=== PATIENT | male | born 1945 | race Caucasian/White ===

== ENCOUNTER 2017-07-15 05:41 | Inpatient (IN) | payer MEDICARE, BC ==
[2017-07-15] MEDS ORDERED: Heparin 10,000 UNITS/1 ML VIAL ONE (06:29)
[2017-07-15] MEDS ORDERED: Protamine Sulfate 50 MG/5 ML VIAL ONE (06:29)
[2017-07-15 06:49] LABS: #Basophils 0.1 thou/uL (0.0-0.2); #Eosinphils 0.4 thou/uL (0.0-0.7); #Lymphocytes 3.6 thou/uL (1.20-3.40); #Monocytes 0.8 thou/uL (0.11-0.59); #Neutrophils 4.4 thou/uL (1.40-6.50); %Basophils 1.1 % (0.0-1.0); %Lymphocytes 38.8 % (21.0-51.0); %Monocytes 8.9 % (0.0-10.0); Hematocrit 48.4 % (42.0-52.0); Mean Platelet Volume 6.8 fL (7.4-10.4); White Blood Cell (WBC) Count 9.3 thou/uL (4.8-10.8)
[2017-07-15 07:10] LABS: Anion Gap 13 mmol/L (10-20); BUN (Urea Nitrogen) 27 mg/dL (8.4-25.7); Calc. Creatinine Clearance 68 mL/min (70-130); Calcium 9.3 mg/dL (7.8-10.44); Carbon Dioxide 21 mmol/L (23-31); Chloride 110 mmol/L (98-107); Estimated GFR-MDRD 61
[2017-07-15] MEDS ORDERED: Fentanyl 100 MCG/2 ML VIAL ONE ×3 (07:21→11:33)
[2017-07-15] MEDS ORDERED: Lidocaine 2% PF 10 ML AMP (For Epidural Use) ONE (07:35)
[2017-07-15] MEDS ORDERED: Labetalol HCl 100 MG/20 ML SYR ONE (07:35)
[2017-07-15] MEDS ORDERED: Glycopyrrolate 0.2 MG/ML 5 ML SYRINGE ONE (07:35)
[2017-07-15] MEDS ORDERED: PHENYLEPHRINE-NS 100 MCG/ML 10 ML SYRINGE ONE (07:35)
[2017-07-15] MEDS ORDERED: Ondansetron HCl/PF 4 MG/2 ML Vial ONE (07:35)
[2017-07-15] MEDS ORDERED: Propofol 200 MG/20 ML VIAL ONE (07:35)
[2017-07-15] MEDS ORDERED: Phenylephrine 10 MG/NS 250 ML 250 ML ONE (08:29)
[2017-07-15] MEDS ORDERED: Promethazine HCl 25 MG/ML VIAL SLOW IVP PRN (09:56)
[2017-07-15] MEDS ORDERED: Ondansetron HCl/PF 4 MG/2 ML Vial IVP PRN ×2 (09:56→12:25)
[2017-07-15] MEDS ORDERED: Promethazine HCl 25 MG/ML VIAL IM PRN ×2 (09:56→12:25)
[2017-07-15] MEDS: Sodium Chloride 0.9% 1,000 ML IV SCH (12:10)
[2017-07-15] MEDS ORDERED: Fentanyl 100 MCG/2 ML VIAL SLOW IVP PRN ×2 (12:25)
[2017-07-15] MEDS ORDERED: DOPamine 400 MG/D5W 250 ML 250 ML IVPB PRN (12:25)
[2017-07-15] MEDS ORDERED: Phenylephrine 10 MG/NS 250 ML 250 ML IVPB PRN (12:25)
[2017-07-15] MEDS ORDERED: Nitroglycerin 50 MG/250 ML BOT 250 ML IVPB PRN (12:25)
[2017-07-15] MEDS ORDERED: HYDROcodone/Acetaminophen 5/325 mg Tablet PO PRN (12:25)
[2017-07-15] MEDS ORDERED: Acetaminophen 325 MG TAB PO PRN (12:25)
[2017-07-15 13:00] VITALS: BMI 29.4
--- NOTE | 2017-07-15 14:18 | OP ---
DATE OF PROCEDURE: 07/15/2017 PREOPERATIVE DIAGNOSIS: Abdominal aortic aneurysm. POSTOPERATIVE DIAGNOSIS: Abdominal aortic aneurysm. PROCEDURE PERFORMED: EVAR using Endurant IIs graft system with main body 32 x 14 x 103 inserted up the right side, then left limb 16 x 10 x 156, and the right limb 16 x 13 x 156. FLUOROSCOPY TIME: 14 minutes and 55 seconds. CONTRAST: 77.5 mL. DESCRIPTION OF PROCEDURE: After adequate anesthesia had been obtained, the patient was prepped and draped. Longitudinal incisions were made in both groins anticipating the need for femoral artery endarterectomy. After isolating on the right, the common femoral artery extending from just above the inguinal ligament, which was divided for about 3-4 mm down to the takeoff of the profunda on the right and then more limited dissection on the left. The common femoral arteries were heavily calcified; however, there was a site for puncture on the right as well as the left. After heparin had been administered , wire was inserted bilaterality advancing up into the aorta with the assistance of a Madison catheter. Contrast angiography was then performed following with a 11-Congolese sheath on the left which was exchanged for a long 12- Congolese sheath. The main body was deployed on the right after magnifying and identifying the renal arteries. Following this, the gate was cannulated without difficulty and the left stent was deployed after retrograde angiography showed the takeoff of the internal iliac artery. The deployed stent graft was 2 cm proximal to the hypogastric takeoff. Similarly, the right side was deployed and once again with a couple of centimeters above the hypogastric artery proximally. Balloons were then used to inflate an completion angiography demonstrated no endoleak. Wires and sheaths were removed and both common femoral arteries were repaired at the puncture sites with no endarterectomy performed. On the right, the profunda and superficial femoral artery was clamped to allow repair as well as external iliac artery clamping , and on left the common femoral artery was clamped proximal and distal to the puncture site. At the conclusion of the procedure, there was a palpable right dorsalis pedis that had been present immediately preop in the operating room. There was no palpable pedal pulse on the left. [facility]
[2017-07-15] MEDS: HYDROcodone/Acetaminophen 5/325 mg Tablet PO PRN ×2 (17:50→21:34)
[2017-07-15] MEDS ORDERED: Atorvastatin Calcium 40 MG TAB PO SCH (21:00)
[2017-07-16] MEDS: Sodium Chloride 0.9% 1,000 ML IV SCH (03:14)
[2017-07-16] MEDS: HYDROcodone/Acetaminophen 5/325 mg Tablet PO PRN ×2 (03:50→07:37)
[2017-07-16 06:04] LABS: #Basophils 0.1 thou/uL (0.0-0.2); #Eosinphils 0.1 thou/uL (0.0-0.7); #Lymphocytes 1.2 thou/uL (1.20-3.40); #Monocytes 1.6 thou/uL (0.11-0.59); #Neutrophils 11.3 thou/uL (1.40-6.50); %Basophils 0.5 % (0.0-1.0); %Eosinophils 0.6 % (0.0-10.0); %Lymphocytes 8.7 % (21.0-51.0); Mean Platelet Volume 7.4 fL (7.4-10.4); Red Blood Cell (RBC) Count 4.34 mill/uL (4.70-6.10); White Blood Cell (WBC) Count 14.2 thou/uL (4.8-10.8)
[2017-07-16 06:19] LABS: Anion Gap 13 mmol/L (10-20); BUN (Urea Nitrogen) 20 mg/dL (8.4-25.7); Calc. Creatinine Clearance 70 mL/min (70-130); Calcium 8.8 mg/dL (7.8-10.44); Carbon Dioxide 23 mmol/L (23-31); Chloride 107 mmol/L (98-107); Estimated GFR-MDRD 57
[2017-07-16 06:43] VITALS: BP 147/55
[2017-07-16] MEDS ORDERED: Acetaminophen/Codeine 30-300mg Tablet PO PRN (06:48)
[2017-07-16 07:37] VITALS: TEMP 98.2
[2017-07-16] MEDS ORDERED: Metoprolol Tartrate 50 MG TAB PO SCH (09:00)
[2017-07-16] MEDS ORDERED: Losartan Potassium 25 MG TAB PO SCH (09:00)
[2017-07-16] MEDS ORDERED: Tamsulosin HCl 0.4 MG CAP PO SCH (09:00)
--- NOTE | 2017-07-16 10:00 | EKG ---
Test Reason : PREOP Blood Pressure : / mmHG Vent. Rate : 076 BPM Atrial Rate : 076 BPM P-R Int : 240 ms QRS Dur : 100 ms QT Int : 390 ms P-R-T Axes : 080 018 093 degrees QTc Int : 438 ms Sinus rhythm with 1st degree A-V block Inferior infarct , age undetermined T wave abnormality, consider lateral ischemia Abnormal ECG When compared with ECG of 25-AUG-2010 07:21, Premature ventricular complexes are no longer Present Confirmed by OSVALDO FRAZIER ([id number]) on 07/16/2017 10:00:19 AM Referred By: MARYANNE Confirmed By:OSVALDO FRAZIER
[2017-07-16 10:32] LABS: Bilirubin Negative (Negative); Blood, Urine Small (Negative); Glucose, Urine (Dipstick) Negative (Negative); Ketone, Urine Negative (Negative); Nitrite Negative (Negative); Protein, Urine (Dipstick) Trace mg/dL (Neg-Trace); Urobilinogen 0.2 mg/dL (0.2-1.0)
[2017-07-16 10:34] LABS: Bacteria/HPF None Seen HPF (None Seen); Hyaline Casts/LPF 4-6 HYALINE CAST LPF (0-3 Hyaline); RBC/HPF GREATER THAN 50-TNTC HPF (0-3); Squamous Epithelial 0-3 HPF (0-3); WBC/HPF 21-50 HPF (0-3)
[2017-07-16 10:52] LABS: Renal Epithelial None Seen HPF (0-3); Transitional Epithelial NONE SEEN HPF (0-3)
--- NOTE | 2017-07-16 11:27 | DIS ---
HOSPITAL SUMMARY: This is a 71-year-old gentleman usually followed at the [facility] who was found to have an abdominal aortic aneurysm at the [facility]. He wished to be treated here and underwent endovascular aneurysm repair on 07/15/2017. Postoperatively, he had some complaints of pain in the right groin. He had his Estrada removed the evening of surgery and was unable to void and a Estrada cat heter was replaced. He previously had not been treated for any urologic problems and had nocturia t imes 2-3 home. He was able to ambulate. His creatinine went from 1.18-1.24 and his hemoglobin from 15.7-14.2 after receiving about 77 mL of contrast during the procedure. [facility] and myself in 2-3 weeks. He has been given specific instructi ons on local wound care for his groin incisions. He did not have a percutaneous procedure, because of heavily calcified femoral arteries. DISCHARGE MEDICATIONS: Will include his admitting medications of amlodipine, simvastatin, metoprolo l, losartan and aspirin as well as a prescription for Tylenol #3 and Flomax.
== END 2017-07-16 10:42 | disposition home or self-care (01) | DRG 269 ==
LOC: SURG A 05:41 → CCU 11:34 → EDSTATUS 12:52
PROVIDERS: ADMIT Thoracic Surgery (Cardiothoracic Vascular Surgery); ATTEND Thoracic Surgery (Cardiothoracic Vascular Surgery)
PROC: 04V04DZ Restriction of Abdominal Aorta with Intraluminal Device, Percutaneous Endoscopic Approach (ICD-10-PCS; principal; 2017-07-15)
PROC: 8E0WXBF Computer Assisted Procedure of Trunk Region, With Fluoroscopy (ICD-10-PCS; 2017-07-15)
DX: I71.4 Abdominal aortic aneurysm, without rupture (principal); I65.23 Occlusion and stenosis of bilateral carotid arteries; I10 Essential (primary) hypertension; I25.10 Atherosclerotic heart disease of native coronary artery without angina pectoris; Z79.82 Long term (current) use of aspirin
CPT/HCPCS: 36415; 76001; 80048; 81001; 85025; 86850; 86900; 86901; 93005; 93010; C1726; C1769; C1894; J0360; J1642; J1644; J2001; J2405; J2704; J2720; J3010

== ENCOUNTER 2017-07-18 23:20 | Emergency (ER) | payer MEDICARE, BC ==
[2017-07-19 00:10] LABS: #Basophils 0.1 thou/uL (0.0-0.2); #Eosinphils 0.3 thou/uL (0.0-0.7); #Lymphocytes 2.7 thou/uL (1.20-3.40); #Monocytes 1.3 thou/uL (0.11-0.59); #Neutrophils 6.5 thou/uL (1.40-6.50); %Basophils 0.8 % (0.0-1.0); %Eosinophils 3.2 % (0.0-10.0); %Monocytes 11.6 % (0.0-10.0); Red Blood Cell (RBC) Count 4.36 mill/uL (4.70-6.10); White Blood Cell (WBC) Count 10.9 thou/uL (4.8-10.8)
[2017-07-19 00:27] LABS: ALT (SGPT) 11 U/L (8-55); AST (SGOT) 26 U/L (5-34); Alkaline Phosphatase 26 U/L (40-150); Anion Gap 13 mmol/L (10-20); BUN (Urea Nitrogen) 21 mg/dL (8.4-25.7); Bilirubin, Total 0.5 mg/dL (0.2-1.2); Calc. Creatinine Clearance 0 mL/min (70-130); Calcium 9.2 mg/dL (7.8-10.44); Carbon Dioxide 22 mmol/L (23-31); Chloride 107 mmol/L (98-107); Estimated GFR-MDRD 66; Globulin 3.2 g/dL (2.4-3.5); Protein, Total 6.5 g/dL (5.8-8.1)
[2017-07-19 02:37] LABS: Bilirubin Negative (Negative); Blood, Urine Moderate (Negative); Glucose, Urine (Dipstick) Negative (Negative); Ketone, Urine Negative (Negative); Nitrite Negative (Negative); Protein, Urine (Dipstick) Trace mg/dL (Neg-Trace)
[2017-07-19 02:38] LABS: Bacteria/HPF None Seen HPF (None Seen); Hyaline Casts/LPF 0-3 HYALINE CAST LPF (0-3 Hyaline); RBC/HPF 21-50 HPF (0-3); Squamous Epithelial 0-3 HPF (0-3)
--- NOTE | 2017-07-19 08:01 | RAD ---
KUB AND UPRIGHT PA CHEST: KUB AND UPRIGHT: HISTORY: Abdominal pain. History of aortic graft placement on Saturday. FINDINGS: The bowel gas pattern is nonobstructive. An aortoiliac graft is in place. There are no signs of fr ee air. There are postoperative changes of the right hip. There is a screw placed to the acetabulu m and a pin also overlying the acetabular region. Surgical clips are seen at the level of both comm on femoral arteries. PA CHEST: Heart size is enlarged. There are atherosclerotic changes of the aorta. Lungs show chronic change. IMPRESSION: No acute findings. POS: [facility]
== END 2017-07-19 04:21 | disposition home or self-care (01) ==
LOC: ERS 23:20
DX: K59.09 Other constipation (principal); N32.89 Other specified disorders of bladder; I25.10 Atherosclerotic heart disease of native coronary artery without angina pectoris; I10 Essential (primary) hypertension; E78.5 Hyperlipidemia, unspecified
CPT/HCPCS: 36415; 74022; 80053; 81003; 81015; 85025; 87086; 99284

== ENCOUNTER 2017-07-21 13:16 | Inpatient (IN) | payer MEDICARE, BC ==
[2017-07-21 15:56] LABS: Hematocrit 42.4 % (42.0-52.0); Mean Platelet Volume 6.7 fL (7.4-10.4); Red Blood Cell (RBC) Count 4.19 mill/uL (4.70-6.10); White Blood Cell (WBC) Count 26.8 thou/uL (4.8-10.8)
[2017-07-21 16:14] LABS: Anion Gap 11 mmol/L (10-20); BUN (Urea Nitrogen) 19 mg/dL (8.4-25.7); Calc. Creatinine Clearance 0 mL/min (70-130); Calcium 9.5 mg/dL (7.8-10.44); Carbon Dioxide 27 mmol/L (23-31); Chloride 107 mmol/L (98-107); Estimated GFR-MDRD 46
[2017-07-21 16:17] LABS: Band 12 % (5-11); Neutrophil 73 % (42-75)
[2017-07-21 16:46] LABS: CK (CPK) 30 U/L (30-200); Lipase 9 U/L (8-78)
[2017-07-21 16:53] LABS: Troponin I 0.732 ng/mL (< 0.028)
[2017-07-21] MEDS ORDERED: ISOVUE-370 76%-LOCM 1 ML ONE (17:02)
[2017-07-21 17:37] LABS: Bilirubin Negative (Negative); Blood, Urine Large (Negative); Glucose, Urine (Dipstick) Negative (Negative); Ketone, Urine Negative (Negative); Nitrite Negative (Negative); Protein, Urine (Dipstick) 30 mg/dL (Neg-Trace)
[2017-07-21 17:39] LABS: Bacteria/HPF 1+ HPF (None Seen); Hyaline Casts/LPF 0-3 HYALINE CAST LPF (0-3 Hyaline); RBC/HPF GREATER THAN 50-TNTC HPF (0-3); Squamous Epithelial 0-3 HPF (0-3)
[2017-07-21 18:36] LABS: Lactic Acid - Sepsis 1.2 mmol/L (0.5-2.2)
[2017-07-21] MEDS ORDERED: Acetaminophen 500 MG TAB ONE (19:15)
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
[2017-07-21 19:58] LABS: Critical Call Chem Troponin I RESULT DECREASING
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
--- NOTE | 2017-07-21 20:43 | CT ---
ABDOMEN CT WITH CONTRAST PELVIC CT WITH CONTRAST Comparison: 03-21-10 History: Abdominal pain. Leukocytosis. Patient is status post abdominal repair on Saturday of last wee k. Technique: An abdomen and pelvic CT performed with IV contrast. Coronal reformatted images are submi tted for interpretation. FINDINGS: ABDOMEN CT: Chronic changes in the lung bases. Heart is enlarged. No significant paracardial effusion. Nonspecific gastrohepatic lymph nodes, similar to the previous examination. No retrocrural or peripo rtal lymphadenopathy. A diminutive spleen is noted. The liver, pancreas, and adrenal glands are unremarkable. Gallbladder is normal in appearance. There are multiple hypodensities in the left and right kidney. Lesions appear to be simple cysts. Th e largest lesion in the right kidney has attenuation coefficient of 11 Hounsfield units. Largest le donavan in the left kidney has attenuation coefficient of 13 Hounsfield units. Bilaterally, no obstruct katja uropathy. No mesenteric mass, lymphadenopathy, free air or free fluid. Limited evaluation of the alimentary canal due to lack of IV contrast. No evidence of bowel obstruct ion. Ileocecal junction is normal. Scattered fecal material in the nondistended, nondilated colon. There is extensive atherosclerosis of the aorta. There is a small amount of air present in the exclu ded lumen, external to the aortobifem graft. The maximal diameter of the aorta of the excluded lumen is 6.1 cm anterior posterior x 6.1 cm mediolateral. Evaluation is limited for an endovascular stent leak due to absence of noncontrast images. Based on the images provided, an obvious leak is not idalia reciated. There is atherosclerotic disease involving the celiac artery origin and superior mesenteri c artery origin. There appears to be at least moderate if not severe narrowing of the proximal super ior mesenteric artery. Inferior mesenteric artery origin is difficult to appreciate. Aortic bifurcat ion and common iliac arteries are grossly unremarkable. PELVIC CT: Urinary bladder is decompressed with Estrada catheterization. No pelvic mass, lymphadenopathy, free ai r or free fluid. There are no osteoblastic or osteolytic lesions. At least two screws traverse the right acetabulum. There is a small focus of air in the right groin compatible with recent catheterization. IMPRESSION: 1. Multiple small foci of air in the excluded lumen of the aneurysmal abdominal aorta, presumably du e to recent intervention. No obvious evidence of an endovascular leak. Evaluation is limited by lack of noncontrast images. 2. Abdominal aortic aneurysm as detailed above. 3. No acute abnormality in the abdomen or pelvis. 4. 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 Conventional angiography may be beneficial. 5. Decompressed urinary bladder secondary to Estrada catheterization. POS: [facility]
[2017-07-21] MEDS ORDERED: Vancomycin HCl 1 GM in Premix Bag 1 BAG IVPB SCH (21:00)
[2017-07-21] MEDS: Sodium Chloride 0.9% 1,000 ML IV SCH (22:05)
[2017-07-21] MEDS: cefTRIAXone\\ROCEPHIN 2 GM in Sodium Chloride 0.9% 100 ML IVPB SCH (22:06)
[2017-07-21] MEDS: Docusate 100 MG CAP PO SCH (22:07)
[2017-07-21] MEDS: Famotidine 20 MG TAB PO SCH (22:07)
[2017-07-21] MEDS: Aspirin 325 mg Enteric Coated Tablet PO SCH (22:08)
[2017-07-21] MEDS: Simvastatin 40 MG TAB PO SCH (22:08)
[2017-07-21] MEDS: Metoprolol Tartrate 50 MG TAB PO SCH (22:08)
[2017-07-21] MEDS: Acetaminophen/Codeine 30-300mg Tablet PO PRN (22:26)
[2017-07-21 23:08] LABS: Critical Call Chem Troponin I RESULT DECREASING; Troponin I 0.528 ng/mL (< 0.028)
[2017-07-22 06:36] LABS: Band 15 % (5-11); Hematocrit 40.1 % (42.0-52.0); Neutrophil 76 % (42-75); Red Blood Cell (RBC) Count 3.95 mill/uL (4.70-6.10); White Blood Cell (WBC) Count 25.3 thou/uL (4.8-10.8)
[2017-07-22 06:40] LABS: ALT (SGPT) 17 U/L (8-55); AST (SGOT) 16 U/L (5-34); Alkaline Phosphatase 35 U/L (40-150); Anion Gap 12 mmol/L (10-20); BUN (Urea Nitrogen) 20 mg/dL (8.4-25.7); Bilirubin, Total 0.6 mg/dL (0.2-1.2); Calc. Creatinine Clearance 72 mL/min (70-130); Calcium 8.8 mg/dL (7.8-10.44); Carbon Dioxide 23 mmol/L (23-31); Chloride 108 mmol/L (98-107); Estimated GFR-MDRD 61; Globulin 2.9 g/dL (2.4-3.5); Protein, Total 5.8 g/dL (5.8-8.1)
[2017-07-22] MEDS: Sodium Chloride 0.9% 1,000 ML IV SCH ×3 (06:47→22:31)
--- NOTE | 2017-07-22 08:08 | PDOC.PN ---
- Subjective Encounter Start Date: 07/22/17 Encounter Start Time: 08:01 Subjective: some chills, sweats during nite - Objective Resuscitation Status: Resuscitation Status FULL:Full Resuscitation MAR Reviewed: Yes Vital Signs & Weight: Vital Signs (12 hours) Temp Pulse Resp BP BP Pulse Ox 07/22/17 04:05 90 L 07/22/17 03:10 97.3 F L 95 16 141/68 H 90 L 07/22/17 00:05 92 L 07/21/17 23:33 99.3 F 81 14 133/65 92 L 07/21/17 22:07 91 149/71 H 07/21/17 21:10 99.1 F 91 18 93 L 07/21/17 20:30 99.1 F 91 18 149/71 H 93 L Weight Weight 200 lb 14.4 oz I&O: 07/21/17 07/22/17 07/23/17 06:59 06:59 06:59 Intake Total 1094 Output Total 700 Balance 394 Result Diagrams: 07/22/17 05:01 07/22/17 05:01 Phys Exam - Physical Examination Constitutional: NAD Neck: no JVD few post rales, clear anr Cardiovascular: RRR, no significant murmur Gastrointestinal: soft, non-tender, positive bowel sounds Musculoskeletal: no edema Dx/Plan (1) Sepsis Code(s): A41.9 - SEPSIS, UNSPECIFIED ORGANISM Status: Acute Qualifiers: Sepsis type: sepsis due to unspecified organism Qualified Code(s): A41.9 - Sepsis, unspecified organism (2) UTI (urinary tract infection) Status: Acute Qualifiers: Urinary tract infection type: site unspecified (3) CAD (coronary artery disease) Code(s): I25.10 - ATHSCL HEART DISEASE OF [place] CORONARY ARTERY W/O ANG PCTRS Status: Acute Qualifiers: Coronary Disease-Associated Artery/Lesion type: [place] artery [place] vs. transplanted heart: [place] heart Associated angina: without angina Qualified Code(s): I25.10 - Atherosclerotic heart disease of [place] coronary artery without angina pectoris (4) HTN (hypertension) Code(s): I10 - ESSENTIAL (PRIMARY) HYPERTENSION Status: Acute (5) Dyslipidemia Code(s): E78.5 - HYPERLIPIDEMIA, UNSPECIFIED Status: Chronic - Plan cont IV antibx, await C&S results -: selected home meds * .
[2017-07-22] MEDS: Docusate 100 MG CAP PO SCH ×2 (08:18→20:53)
[2017-07-22] MEDS: Famotidine 20 MG TAB PO SCH ×2 (08:19→20:52)
[2017-07-22] MEDS: Metoprolol Tartrate 50 MG TAB PO SCH ×2 (08:20→20:53)
[2017-07-22] MEDS: Tamsulosin HCl 0.4 MG CAP PO SCH (08:20)
[2017-07-22] MEDS ORDERED: Enoxaparin Sodium 40 MG/0.4 ML SYRINGE SC SCH (09:00)
[2017-07-22] MEDS: Acetaminophen/Codeine 30-300mg Tablet PO PRN (12:11)
[2017-07-22] MEDS ORDERED: Vancomycin HCl 1.25 GM in Sodium Chloride 0.9% 250 ML 250 ML IVPB SCH (14:00)
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
--- NOTE | 2017-07-22 14:27 | PQF ---
ABI DORSEY COUNCIL C MD [id number] CLINICAL DOCUMENTATION IMPROVEMENT CLARIFICATION FORM: ICD-10 Updated PLEASE DO AN ADDENDUM TO THE PROGRESS NOTE WITH ANY DOCUMENTATION UPDATES OR ADDITIONS AND CARRY THROUGH TO DC SUMMARY. THANK YOU. DATE: 07-22-17 ATTN: DR. ANNABEL BRAR Please exercise your independent, professional judgment in responding to the clarification form. Clinical indicators are provided on the bottom of this form for your review Please check appropriate box(s): [ ] Sepsis due to UTI due to indwelling Verduzco Catheter [ ] Sepsis due to UTI not related to indwelling Verduzco Catheter [ ] Other diagnosis [ x ] Unable to determine In addition, please specify: Present on Admission (POA): [ x ] Yes [ ] No [ ] Unable to determine For continuity of documentation, please document condition throughout progress notes and discharge summary. Thank You. CLINICAL INDICATORS - SIGNS / SYMPTOMS / LABS ER: SEPSIS/ NSTEMI / UTI H&P: SEPSIS W/ UTI AND INDWELLING VERDUZCO CATHETER RISK FACTORS H&P: DISCHARGED ON SATURDAY W/ VERDUZCO CATHETER HE COULD NOT URINATE S/P AAA REPAIR TREATMENTS: CPOE - CEFTRIAXONE (07-21)/ VANCOMYCIN (07-21 / 07-22) BLOOD AND URINE CULTURES IN ER IVF: NS 100 ML /HR CONSULT: UROLOGY - PENDING THANK YOU, IVANA (This form is maintained as a part of the permanent medical record) 2014 [employer]. All Rights Reserved Ivana Brown RN, BS [email or web address] [facility] NETWORKVaughn
[2017-07-22] MEDS: Enoxaparin Sodium 80 MG/0.8 ML SYRINGE SC SCH (20:52)
[2017-07-22] MEDS: Aspirin 325 mg Enteric Coated Tablet PO SCH (20:52)
[2017-07-22] MEDS: cefTRIAXone\\ROCEPHIN 2 GM in Sodium Chloride 0.9% 100 ML IVPB SCH (20:52)
[2017-07-22] MEDS: Acetaminophen 325 MG TAB PO PRN (20:52)
[2017-07-22] MEDS: Zolpidem Tartrate 5 MG TAB PO PRN (20:53)
[2017-07-22] MEDS: Simvastatin 40 MG TAB PO SCH (20:53)
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
--- NOTE | 2017-07-23 08:25 | PDOC.PN ---
- Subjective Encounter Start Date: 07/23/17 Encounter Start Time: 08:23 Subjective: had to wake him, stated he hadnt slept all nite - Objective Resuscitation Status: Resuscitation Status FULL:Full Resuscitation MAR Reviewed: Yes Vital Signs & Weight: Vital Signs (12 hours) Temp Pulse Resp BP BP Pulse Ox 07/23/17 02:54 97.9 F 87 18 157/76 H 97 07/22/17 22:59 97.9 F 85 16 145/73 H 92 L 07/22/17 20:53 94 162/72 H Weight Admit Weight 199 lb 11.2 oz Weight 202 lb 8 oz I&O: 07/22/17 07/23/17 07/24/17 06:59 06:59 06:59 Intake Total 1094 3327 Output Total 700 2475 Balance 394 852 Result Diagrams: 07/22/17 05:01 07/22/17 05:01 Phys Exam - Physical Examination Constitutional: NAD Neck: no JVD Respiratory: clear to auscultation bilateral Cardiovascular: RRR, no significant murmur Gastrointestinal: soft, positive bowel sounds Musculoskeletal: no edema Dx/Plan (1) Sepsis Code(s): A41.9 - SEPSIS, UNSPECIFIED ORGANISM Status: Acute Qualifiers: Sepsis type: Pseudomonas Qualified Code(s): A41.52 - Sepsis due to Pseudomonas Comment: pansensitive (2) UTI (urinary tract infection) Status: Acute Qualifiers: Urinary tract infection type: site unspecified (3) CAD (coronary artery disease) Code(s): I25.10 - ATHSCL HEART DISEASE OF [place] CORONARY ARTERY W/O ANG PCTRS Status: Acute Qualifiers: Coronary Disease-Associated Artery/Lesion type: [place] artery [place] vs. transplanted heart: [place] heart Associated angina: without angina Qualified Code(s): I25.10 - Atherosclerotic heart disease of [place] coronary artery without angina pectoris (4) HTN (hypertension) Code(s): I10 - ESSENTIAL (PRIMARY) HYPERTENSION Status: Acute Qualifiers: Hypertension type: essential hypertension Qualified Code(s): I10 - Essential (primary) hypertension (5) Dyslipidemia Code(s): E78.5 - HYPERLIPIDEMIA, UNSPECIFIED Status: Chronic - Plan deescalate antibx, cont rocephin -: rpt cbc -: urine C&S poss pseudomonas, blood C&S neg -: cont gautam, discuss with * .
[2017-07-23] MEDS: Polyethylene Glycol 3350 17 GM Packet PO SCH (09:10)
[2017-07-23] MEDS: Enoxaparin Sodium 80 MG/0.8 ML SYRINGE SC SCH ×2 (09:10→20:13)
[2017-07-23] MEDS: Docusate 100 MG CAP PO SCH ×2 (09:10→20:10)
[2017-07-23] MEDS: Famotidine 20 MG TAB PO SCH ×2 (09:10→20:11)
[2017-07-23] MEDS: Tamsulosin HCl 0.4 MG CAP PO SCH (09:10)
[2017-07-23] MEDS: Metoprolol Tartrate 50 MG TAB PO SCH ×2 (09:10→20:10)
[2017-07-23] MEDS: Sodium Chloride 0.9% 1,000 ML IV SCH ×2 (09:23→20:10)
[2017-07-23 10:34] LABS: #Eosinphils 0.4 thou/uL (0.0-0.7); #Lymphocytes 1.1 thou/uL (1.20-3.40); #Monocytes 0.9 thou/uL (0.11-0.59); #Neutrophils 17.6 thou/uL (1.40-6.50); %Basophils 0.2 % (0.0-1.0); %Lymphocytes 5.3 % (21.0-51.0); %Monocytes 4.4 % (0.0-10.0); Hematocrit 39.9 % (42.0-52.0); Mean Platelet Volume 6.8 fL (7.4-10.4); Red Blood Cell (RBC) Count 3.92 mill/uL (4.70-6.10)
--- NOTE | 2017-07-23 13:19 | PQF ---
ABI DORSEY COUNCIL C MD [id number] CLINICAL DOCUMENTATION IMPROVEMENT CLARIFICATION FORM: ICD-10 Updated PLEASE DO AN ADDENDUM TO THE PROGRESS NOTE WITH ANY DOCUMENTATION UPDATES OR ADDITIONS AND CARRY THROUGH TO DC SUMMARY. THANK YOU. DATE: 07-23-17 ATTN: DR. ANNABEL BRAR Please exercise your independent, professional judgment in responding to the clarification form. Clinical indicators are provided on the bottom of this form for your review Please check appropriate box(s): AMI TYPE: [ ] NSTEMI [ x ] NSTEMI TYPE II (D/T DEMAND ISCHEMIA) [ ] Demand Ischemia [ ] Other diagnosis [ ] Unable to determine In addition, please specify: Present on Admission (POA): [x ] Yes [ ] No [ ] Unable to determine CLINICAL INDICATORS - SIGNS / SYMPTOMS / LABS ER: SEPSIS; NSTEMI; UTI H&P: SEPSIS; UTI ; DEMAND ISCHEMIA CARDIOLOGY CONSULT: NSTEMI: DEMAND ISCHEMIA TROPONIN I : 10-1 @ 1539 0.732 @ 1909 0.540 @ 2218 0.528 RISKS: H&P: HTN; CAD W/ HX CABG X 4 VESSELS SEPSIS D/T UTI TREATMENTS: H&P: CARDIAC MONITORING (TELE) BROAD SPECTRUM ABX BLOOD CULTURES CONTINUE ASPIRIN; SIMVASTATIN; LOPRESSOR; NORVASC; HOLD COZAAR; TWO MORE SETS OF TROPONIN CPOE: OXYGEN 1.5 - 2 LNC CARDIO CONSULT THANK YOU, IVANA (This form is maintained as a part of the permanent medical record) 2014 [employer]. All Rights Reserved Ivana Brown RN, BS [email or web address] [email or web address]
[2017-07-23] MEDS: Acetaminophen 325 MG TAB PO PRN (14:10)
[2017-07-23] MEDS: Simvastatin 40 MG TAB PO SCH (20:11)
[2017-07-23] MEDS: Zolpidem Tartrate 5 MG TAB PO PRN (20:11)
[2017-07-23] MEDS: Aspirin 325 mg Enteric Coated Tablet PO SCH (20:11)
[2017-07-23] MEDS: cefTRIAXone\\ROCEPHIN 2 GM in Sodium Chloride 0.9% 100 ML IVPB SCH (20:11)
[2017-07-23] MEDS: Acetaminophen/Codeine 30-300mg Tablet PO PRN (23:22)
[2017-07-24] MEDS: Polyethylene Glycol 3350 17 GM Packet PO SCH (08:22)
[2017-07-24] MEDS: Enoxaparin Sodium 80 MG/0.8 ML SYRINGE SC SCH ×2 (08:22→20:56)
[2017-07-24] MEDS: Docusate 100 MG CAP PO SCH ×2 (08:22→20:55)
[2017-07-24] MEDS: Famotidine 20 MG TAB PO SCH ×2 (08:23→20:56)
[2017-07-24] MEDS: Metoprolol Tartrate 50 MG TAB PO SCH ×2 (08:23→21:37)
[2017-07-24] MEDS: Tamsulosin HCl 0.4 MG CAP PO SCH (08:23)
--- NOTE | 2017-07-24 08:23 | PDOC.PN ---
- Subjective Encounter Start Date: 07/24/17 Encounter Start Time: 08:21 Subjective: having bladder spasms with gautam - Objective Resuscitation Status: Resuscitation Status FULL:Full Resuscitation MAR Reviewed: Yes Vital Signs & Weight: Vital Signs (12 hours) Temp Pulse Resp BP Pulse Ox 07/24/17 07:29 98.5 F 98 18 176/79 H 92 L 07/24/17 04:00 99.2 F 91 20 163/76 H 93 L Weight Admit Weight 199 lb 11.2 oz Weight 202 lb 1.76 oz I&O: 07/23/17 07/24/17 07/25/17 06:59 06:59 06:59 Intake Total 3327 4485 Output Total 6295 4425 Balance 852 60 Result Diagrams: 07/23/17 10:12 07/22/17 05:01 Phys Exam - Physical Examination Constitutional: NAD Neck: no JVD Respiratory: clear to auscultation bilateral Cardiovascular: RRR, no significant murmur Gastrointestinal: soft, non-tender Musculoskeletal: no edema Dx/Plan (1) Sepsis Code(s): A41.9 - SEPSIS, UNSPECIFIED ORGANISM Status: Acute Qualifiers: Sepsis type: Pseudomonas Qualified Code(s): A41.52 - Sepsis due to Pseudomonas Comment: pansensitive (2) UTI (urinary tract infection) Status: Acute Qualifiers: Urinary tract infection type: site unspecified (3) CAD (coronary artery disease) Code(s): I25.10 - ATHSCL HEART DISEASE OF [place] CORONARY ARTERY W/O ANG PCTRS Status: Acute Qualifiers: Coronary Disease-Associated Artery/Lesion type: [place] artery [place] vs. transplanted heart: [place] heart Associated angina: without angina Qualified Code(s): I25.10 - Atherosclerotic heart disease of [place] coronary artery without angina pectoris (4) HTN (hypertension) Code(s): I10 - ESSENTIAL (PRIMARY) HYPERTENSION Status: Acute Qualifiers: Hypertension type: essential hypertension Qualified Code(s): I10 - Essential (primary) hypertension (5) Dyslipidemia Code(s): E78.5 - HYPERLIPIDEMIA, UNSPECIFIED Status: Chronic (6) Bladder spasms Status: Acute - Plan B&O supp prn -: rpt CBC, CMP -: cont iv antibx til WBC normal -: will need 3 weeks total po/IV anyibx- recent vasc stent * .
[2017-07-24] MEDS: Sodium Chloride 0.9% 1,000 ML IV SCH ×2 (08:25→16:16)
[2017-07-24 08:32] LABS: #Eosinphils 0.1 thou/uL (0.0-0.7); #Lymphocytes 1.5 thou/uL (1.20-3.40); #Monocytes 1.3 thou/uL (0.11-0.59); #Neutrophils 10.9 thou/uL (1.40-6.50); %Basophils 0.2 % (0.0-1.0); %Eosinophils 0.6 % (0.0-10.0); %Lymphocytes 10.9 % (21.0-51.0); %Monocytes 9.1 % (0.0-10.0); Hematocrit 41.5 % (42.0-52.0); Red Blood Cell (RBC) Count 4.13 mill/uL (4.70-6.10); White Blood Cell (WBC) Count 13.7 thou/uL (4.8-10.8)
[2017-07-24 08:50] LABS: ALT (SGPT) 23 U/L (8-55); AST (SGOT) 32 U/L (5-34); Alkaline Phosphatase 39 U/L (40-150); Anion Gap 15 mmol/L (10-20); BUN (Urea Nitrogen) 14 mg/dL (8.4-25.7); Bilirubin, Total 0.3 mg/dL (0.2-1.2); Calc. Creatinine Clearance 100 mL/min (70-130); Calcium 8.8 mg/dL (7.8-10.44); Carbon Dioxide 19 mmol/L (23-31); Chloride 107 mmol/L (98-107); Estimated GFR-MDRD 88; Globulin 3.3 g/dL (2.4-3.5); Protein, Total 6.2 g/dL (5.8-8.1)
[2017-07-24] MEDS: B & O PR PRN (10:39)
[2017-07-24] MEDS ORDERED: Labetalol HCl 100 MG/20 ML VIAL SLOW IVP PRN (13:22)
[2017-07-24] MEDS: Acetaminophen/Codeine 30-300mg Tablet PO PRN (14:08)
[2017-07-24] MEDS: Guaifenesin DM 100-10/5 ML UDCUP PO PRN ×3 (14:12→22:00)
[2017-07-24] MEDS: cefTRIAXone\\ROCEPHIN 2 GM in Sodium Chloride 0.9% 100 ML IVPB SCH (20:54)
[2017-07-24] MEDS: Simvastatin 40 MG TAB PO SCH (20:55)
[2017-07-24] MEDS: Aspirin 325 mg Enteric Coated Tablet PO SCH (20:55)
[2017-07-24] MEDS: Zolpidem Tartrate 5 MG TAB PO PRN (21:44)
[2017-07-25] MEDS: Sodium Chloride 0.9% 1,000 ML IV SCH ×3 (03:59→23:16)
[2017-07-25] MEDS: B & O PR PRN (06:27)
[2017-07-25] MEDS ORDERED: LOSARTAN POTASSIUM 25 MG PO SCH (09:00)
--- NOTE | 2017-07-25 09:03 | PDOC.PN ---
- Subjective Encounter Start Date: 07/25/17 Encounter Start Time: 09:01 Subjective: bladder spasms [id number] on B&O supp - Objective Resuscitation Status: Resuscitation Status FULL:Full Resuscitation MAR Reviewed: Yes Vital Signs & Weight: Vital Signs (12 hours) Temp Pulse Resp BP BP Pulse Ox 07/25/17 07:55 98.7 F 86 20 181/81 H 92 L 07/25/17 04:00 98.8 F 89 20 161/82 H 91 L 07/25/17 00:00 98.7 F 82 20 152/70 H 91 L 07/24/17 21:38 98.8 F 100 20 134/69 92 L 07/24/17 21:37 90 134/70 Weight Admit Weight 199 lb 11.2 oz Weight 201 lb 2 oz I&O: 07/24/17 07/25/17 07/26/17 06:59 06:59 06:59 Intake Total 4485 3405 Output Total 4425 3760 Balance 60 -355 Result Diagrams: 07/24/17 08:22 07/24/17 08:22 Phys Exam - Physical Examination Constitutional: NAD Neck: no JVD Respiratory: clear to auscultation bilateral Cardiovascular: RRR, no significant murmur Gastrointestinal: soft, positive bowel sounds Musculoskeletal: no edema Dx/Plan (1) Sepsis Code(s): A41.9 - SEPSIS, UNSPECIFIED ORGANISM Status: Acute Qualifiers: Sepsis type: Pseudomonas Qualified Code(s): A41.52 - Sepsis due to Pseudomonas Comment: pansensitive (2) UTI (urinary tract infection) Status: Acute Qualifiers: Urinary tract infection type: site unspecified (3) CAD (coronary artery disease) Code(s): I25.10 - ATHSCL HEART DISEASE OF [place] CORONARY ARTERY W/O ANG PCTRS Status: Acute Qualifiers: Coronary Disease-Associated Artery/Lesion type: [place] artery [place] vs. transplanted heart: [place] heart Associated angina: without angina Qualified Code(s): I25.10 - Atherosclerotic heart disease of [place] coronary artery without angina pectoris (4) HTN (hypertension) Code(s): I10 - ESSENTIAL (PRIMARY) HYPERTENSION Status: Acute Qualifiers: Hypertension type: essential hypertension Qualified Code(s): I10 - Essential (primary) hypertension (5) Dyslipidemia Code(s): E78.5 - HYPERLIPIDEMIA, UNSPECIFIED Status: Chronic (6) Bladder spasms Status: Acute - Plan current plan- iv antibx until 07/28/17. then transition to po, voiding trial -: 07/28/17, then home on 2 weeks po antibx. prolonged treatment due to recent -: intravascular stent * .
[2017-07-25] MEDS: Famotidine 20 MG TAB PO SCH ×2 (09:45→20:19)
[2017-07-25] MEDS: Docusate 100 MG CAP PO SCH ×2 (09:45→20:18)
[2017-07-25] MEDS: Metoprolol Tartrate 50 MG TAB PO SCH ×2 (09:45→20:19)
[2017-07-25] MEDS: Tamsulosin HCl 0.4 MG CAP PO SCH (09:45)
[2017-07-25] MEDS: Polyethylene Glycol 3350 17 GM Packet PO SCH (09:46)
[2017-07-25] MEDS: Losartan Potassium 25 MG TAB PO SCH (09:46)
[2017-07-25] MEDS: Enoxaparin Sodium 80 MG/0.8 ML SYRINGE SC SCH ×2 (09:46→20:19)
[2017-07-25 11:47] VITALS: BMI 28.8
[2017-07-25] MEDS: Guaifenesin DM 100-10/5 ML UDCUP PO PRN ×3 (12:13→21:52)
[2017-07-25] MEDS: Acetaminophen/Codeine 30-300mg Tablet PO PRN (17:12)
[2017-07-25] MEDS: cefTRIAXone\\ROCEPHIN 2 GM in Sodium Chloride 0.9% 100 ML IVPB SCH (20:16)
[2017-07-25] MEDS: Aspirin 325 mg Enteric Coated Tablet PO SCH (20:18)
[2017-07-25] MEDS: Simvastatin 40 MG TAB PO SCH (20:19)
[2017-07-25] MEDS: Zolpidem Tartrate 5 MG TAB PO PRN (21:52)
[2017-07-26] MEDS: Guaifenesin DM 100-10/5 ML UDCUP PO PRN ×2 (02:07→09:53)
[2017-07-26] MEDS: Acetaminophen/Codeine 30-300mg Tablet PO PRN ×2 (03:56→15:09)
[2017-07-26 05:11] LABS: Hematocrit 41.2 % (42.0-52.0)
[2017-07-26] MEDS: Metoprolol Tartrate 50 MG TAB PO SCH ×2 (09:48→20:30)
[2017-07-26] MEDS: Losartan Potassium 25 MG TAB PO SCH (09:48)
[2017-07-26] MEDS: Polyethylene Glycol 3350 17 GM Packet PO SCH (09:48)
[2017-07-26] MEDS: Docusate 100 MG CAP PO SCH ×2 (09:48→20:29)
[2017-07-26] MEDS: Famotidine 20 MG TAB PO SCH ×2 (09:48→20:30)
[2017-07-26] MEDS: Tamsulosin HCl 0.4 MG CAP PO SCH (09:48)
[2017-07-26] MEDS ORDERED: guaiFENesin/Codeine Phosphate 200 mg/20 mg 10 ml UD Cup PO PRN (10:20)
--- NOTE | 2017-07-26 11:39 | PDOC.PN ---
- Subjective Encounter Start Date: 07/26/17 Encounter Start Time: 11:37 Subjective: feels better but significant cough and muscle pain with that - Objective Resuscitation Status: Resuscitation Status FULL:Full Resuscitation MAR Reviewed: Yes Vital Signs & Weight: Vital Signs (12 hours) Temp Pulse Resp BP Pulse Ox 07/26/17 07:15 98.3 F 92 18 07/26/17 07:00 98.8 F 96 24 H 161/78 H 98 07/26/17 04:24 85 137/65 07/26/17 03:50 98.1 F 104 H 20 207/92 H 97 Weight Admit Weight 199 lb 11.2 oz Weight 197 lb 9.6 oz I&O: 07/25/17 07/26/17 07/27/17 06:59 06:59 06:59 Intake Total 3405 3780 Output Total 3760 3535 Balance -355 245 Result Diagrams: 07/26/17 04:27 07/26/17 04:27 Additional Labs: Accuchecks 07/25/17 20:33 POC Glucose 115 H Microbiology 07/21/17 17:25 Urine gautam catheter Urine Culture - Final Pseudomonas aeruginosa 07/21/17 18:16 Venous blood - Left Hand Blood Culture - Preliminary NO GROWTH AT 48 HOURS 07/21/17 18:16 Venous blood - Left Arm Blood Culture - Preliminary NO GROWTH AT 48 HOURS Laboratory Tests 07/21/17 07/21/17 07/21/17 15:39 15:43 19:09 WBC 26.8 H Troponin I 0.732 H* 0.540 H* 07/21/17 07/22/17 07/23/17 22:18 05:01 10:12 WBC 25.3 H 20.0 H Troponin I 0.528 H* 07/24/17 08:22 WBC 13.7 H Troponin I Phys Exam - Physical Examination Constitutional: NAD HEENT: PERRLA, moist MMs, sclera anicteric, oral pharynx no lesions Neck: no nodes, no JVD, supple, full ROM Respiratory: no wheezing, no rales, no rhonchi, clear to auscultation bilateral decreased at bases Cardiovascular: RRR, no significant murmur Gastrointestinal: soft, non-tender, no distention, positive bowel sounds Musculoskeletal: no edema, pulses present Neurological: non-focal, normal sensation, moves all 4 limbs Psychiatric: normal affect, A&O x 3 Skin: no rash Dx/Plan (1) Sepsis Code(s): A41.9 - SEPSIS, UNSPECIFIED ORGANISM Status: Acute Qualifiers: Sepsis type: Pseudomonas Qualified Code(s): A41.52 - Sepsis due to Pseudomonas Comment: pansensitive (2) UTI (urinary tract infection) Status: Acute Qualifiers: Urinary tract infection type: site unspecified (3) Troponin level elevated Code(s): R74.8 - ABNORMAL LEVELS OF OTHER SERUM ENZYMES Status: Acute Comment: [place] demand ischemia.cardiology recs in chart (4) Bladder spasms Status: Acute (5) CAD (coronary artery disease) Code(s): I25.10 - ATHSCL HEART DISEASE OF [place] CORONARY ARTERY W/O ANG PCTRS Status: Acute Qualifiers: Coronary Disease-Associated Artery/Lesion type: [place] artery [place] vs. 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 [facility] -: discussed w cardilogy Dr. Hall-will stop BID lovenox. -: add daily prophylactic dosing of lovenox.am labs * . Review of Systems - Review of Systems Constitutional: Weakness, Malaise. negative: Fever, Chills, Sweats, Other Respiratory: Cough. negative: Dry, Shortness of Breath, Hemoptysis, SOB with Excertion, Pleuritic Pain, Sputum, Wheezing Cardiovascular: negative: Chest Pain, Palpitations, Orthopnea, Paroxysmal Noc. Dyspnea, Edema, Light Headedness, Other Gastrointestinal: negative: Nausea, Vomiting, Abdominal Pain, Diarrhea, Constipation, Melena, Hematochezia, Other Genitourinary: negative: Dysuria, Frequency, Incontinence, Hematuria, Retention , Other Musculoskeletal: negative: Neck Pain, Shoulder Pain, Arm Pain, Back Pain, Hand Pain, Leg Pain, Foot Pain, Other Neurological: negative: Weakness, Numbness, Incoordination, Change in Speech, Confusion, Seizures, Other - Medications/Allergies Allergies/Adverse Reactions: Allergies Allergy/AdvReac Type Severity Reaction Status Date / Time No Known Allergies Allergy Verified 07/21/17 21:18 Medications: Current Medications Acetaminophen (Tylenol) 650 mg PO Q4H PRN PRN Reason: Headache/Fever or Pain Last Admin: 07/23/17 14:10 Dose: 650 mg Acetaminophen/Codeine Phosphate (Tylenol #3) 1 tab PO Q6HR PRN PRN Reason: Pain Last Admin: 07/26/17 03:56 Dose: 1 tab Amlodipine Besylate (Norvasc) 10 mg PO [facility] Last Admin: 07/25/17 20:18 Dose: 10 mg Aspirin (Ecotrin) 325 mg PO [facility] Last Admin: 07/25/17 20:18 Dose: 325 mg [place] Alkaloids/Opium (B & O) 60 mg [place] BID PRN PRN Reason: Pain Last Admin: 07/25/17 06:27 Dose: 60 mg Docusate Sodium (Colace) 100 mg PO BID [facility] Last Admin: 07/26/17 09:48 Dose: 100 mg Enoxaparin Sodium (Lovenox) 40 mg SC 2100 [facility] Famotidine (Pepcid) 20 mg PO BID [facility] Last Admin: 07/26/17 09:48 Dose: 20 mg Guaifenesin/Codeine Phosphate (Robitussin Ac) 10 ml PO Q6H PRN PRN Reason: cough Guaifenesin/Dextromethorphan (Robitussin Dm) 15 ml PO Q4H PRN PRN Reason: Cough Last Admin: 07/26/17 09:53 Dose: 15 ml Hydralazine HCl (Apresoline) 20 mg SLOW IVP Q4H PRN PRN Reason: Systolic BP > 180 Last Admin: 07/24/17 14:09 Dose: 20 mg Levofloxacin 750 mg/ Device 150 mls @ 100 mls/hr IVPB Q24HR [facility] Last Admin: 07/26/17 09:48 Dose: 150 mls Labetalol HCl (Normodyne) 20 mg SLOW IVP Q4H PRN PRN Reason: Systolic BP > 180 Last Admin: 07/26/17 03:55 Dose: 20 mg Losartan Potassium (Cozaar) 25 mg PO DAILY [facility] Last Admin: 07/26/17 09:48 Dose: 25 mg Metoprolol Tartrate (Lopressor) 50 mg PO BID [facility] Last Admin: 07/26/17 09:48 Dose: 50 mg Polyethylene Glycol (Miralax) 17 gm PO DAILY [facility] Last Admin: 07/26/17 09:48 Dose: 17 gm Simvastatin (Zocor) 80 mg PO HS [facility] Last Admin: 07/25/17 20:19 Dose: 80 mg Sodium Chloride (Flush - Normal Saline) 10 ml IVF Q12HR [facility] Last Admin: 07/26/17 09:48 Dose: Not Given Sodium Chloride (Flush - Normal Saline) 10 ml IVF PRN PRN PRN Reason: Saline Flush Tamsulosin HCl (Flomax) 0.4 mg PO DAILY [facility] Last Admin: 07/26/17 09:48 Dose: 0.4 mg Zolpidem Tartrate (Ambien) 5 mg PO HSPRN PRN PRN Reason: Insomnia Last Admin: 07/25/17 21:52 Dose: 5 mg
--- NOTE | 2017-07-26 17:29 | RAD ---
CHEST ONE VIEW: 07/26/17 HISTORY: Dyspnea. COMPARISON: 07/21/17. FINDINGS: The cardiac silhouette is magnified and enlarged. Pulmonary vasculature is more engorged than on the prior study. Mediastinum is midline with postoperative changes and aortic calcification. There is n o lobar consolidation or evidence of pneumothorax. Chronic density over the left apex may represent rib or pleural abnormality. Postoperative changes of the left side of the neck and each shoulder are apparent. child monitor leads overlie the chest. IMPRESSION: Worsening pulmonary vascular congestion. POS: KYM
[2017-07-26] MEDS: Aspirin 325 mg Enteric Coated Tablet PO SCH (20:29)
[2017-07-26] MEDS: Enoxaparin Sodium 40 MG/0.4 ML SYRINGE SC SCH (20:30)
[2017-07-26] MEDS: Simvastatin 40 MG TAB PO SCH (20:30)
[2017-07-26] MEDS: Zolpidem Tartrate 5 MG TAB PO PRN (20:33)
[2017-07-27] MEDS: Acetaminophen/Codeine 30-300mg Tablet PO PRN ×3 (00:49→21:35)
[2017-07-27 05:13] LABS: #Eosinphils 0.1 thou/uL (0.0-0.7); #Neutrophils 7.8 thou/uL (1.40-6.50); %Basophils 0.1 % (0.0-1.0); %Eosinophils 1.1 % (0.0-10.0); %Monocytes 9.5 % (0.0-10.0); Hematocrit 39.5 % (42.0-52.0); Mean Platelet Volume 7.3 fL (7.4-10.4); Red Blood Cell (RBC) Count 3.97 mill/uL (4.70-6.10); White Blood Cell (WBC) Count 10.9 thou/uL (4.8-10.8)
[2017-07-27 05:31] LABS: Anion Gap 10 mmol/L (10-20); BUN (Urea Nitrogen) 12 mg/dL (8.4-25.7); Calc. Creatinine Clearance 88 mL/min (70-130); Calcium 8.4 mg/dL (7.8-10.44); Carbon Dioxide 25 mmol/L (23-31); Chloride 106 mmol/L (98-107); Estimated GFR-MDRD 79
[2017-07-27] MEDS ORDERED: Furosemide 40 MG/4 ML VIAL SLOW IVP SCH (08:30)
[2017-07-27] MEDS ORDERED: Potassium Chloride 20 MEQ TAB PO SCH (08:45)
[2017-07-27] MEDS: Losartan Potassium 25 MG TAB PO SCH (09:48)
[2017-07-27] MEDS: Metoprolol Tartrate 50 MG TAB PO SCH ×2 (09:48→21:35)
[2017-07-27] MEDS: Docusate 100 MG CAP PO SCH ×2 (09:48→21:35)
[2017-07-27] MEDS: Tamsulosin HCl 0.4 MG CAP PO SCH (09:48)
[2017-07-27] MEDS: Famotidine 20 MG TAB PO SCH ×2 (09:48→21:35)
[2017-07-27] MEDS: Polyethylene Glycol 3350 17 GM Packet PO SCH (09:49)
--- NOTE | 2017-07-27 10:09 | PDOC.PN ---
- Subjective Encounter Start Date: 07/27/17 Encounter Start Time: 10:07 Subjective: feels better. off of Oxygen. no chest pain.some BRO - Objective Resuscitation Status: Resuscitation Status FULL:Full Resuscitation MAR Reviewed: Yes Vital Signs & Weight: Vital Signs (12 hours) Temp Pulse Resp BP Pulse Ox 07/27/17 08:23 97.6 F 82 16 07/27/17 07:14 94 L 07/27/17 07:12 82 16 94 L 07/27/17 04:00 97.6 F 88 14 168/75 H 93 L 07/27/17 01:49 99 07/27/17 00:55 91 18 92 L Weight Admit Weight 199 lb 11.2 oz Weight 197 lb 3.2 oz I&O: 07/26/17 07/27/17 07/28/17 06:59 06:59 06:59 Intake Total 3780 2210 Output Total 3535 1925 Balance 245 285 Result Diagrams: 07/27/17 04:23 07/27/17 04:23 Additional Labs: Microbiology 07/21/17 18:16 Venous blood - Left Hand Blood Culture - Final NO GROWTH IN 5 DAYS 07/21/17 18:16 Venous blood - Left Arm Blood Culture - Final NO GROWTH IN 5 DAYS 07/21/17 17:25 Urine gautam catheter Urine Culture - Final Pseudomonas aeruginosa Radiology Reviewed by me: Yes (CXR-Pulm vascular congestion) Phys Exam - Physical Examination Constitutional: NAD HEENT: PERRLA, moist MMs, sclera anicteric, oral pharynx no lesions Neck: no JVD Respiratory: no wheezing, no rales rhonchi Cardiovascular: RRR, no significant murmur Gastrointestinal: soft, non-tender, no distention, positive bowel sounds Musculoskeletal: no edema, pulses present Neurological: non-focal, normal sensation, moves all 4 limbs Psychiatric: normal affect, A&O x 3 Skin: no rash Dx/Plan (1) Sepsis Code(s): A41.9 - SEPSIS, UNSPECIFIED ORGANISM Status: Acute Qualifiers: Sepsis type: Pseudomonas Qualified Code(s): A41.52 - Sepsis due to Pseudomonas Comment: pansensitive.antibiotic chnaged per sensitivity (2) UTI (urinary tract infection) Status: Acute Qualifiers: Urinary tract infection type: site unspecified (3) Troponin level elevated Code(s): R74.8 - ABNORMAL LEVELS OF OTHER SERUM ENZYMES Status: Acute Comment: [place] demand ischemia.cardiology recs in chart (4) Bladder spasms Status: Acute (5) CAD (coronary artery disease) Code(s): I25.10 - ATHSCL HEART DISEASE OF [place] CORONARY ARTERY W/O ANG PCTRS Status: Acute Qualifiers: Coronary Disease-Associated Artery/Lesion type: [place] artery [place] vs. 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 urology seen the patient. will follow up in outpatient setting - Plan gautam catheter, continue antibiotics, out of bed/ambulate, DVT proph w/SCDs cont levofloxacin. cont Gautam.Flomax -: Give 1 dose of lasix IV today as CXR c/w Pulm edema.clinically stable. -: cont nebs prn. -: likley home in next 12-24 hours.cont supportive care. -: home meds as below. hemodynmaically stable * . Review of Systems - Review of Systems Constitutional: negative: Fever, Chills, Sweats, Weakness, Malaise, Other Respiratory: SOB with Excertion. negative: Cough, Dry, Shortness of Breath, Hemoptysis, Pleuritic Pain, Sputum, Wheezing Cardiovascular: negative: Chest Pain, Palpitations, Orthopnea, Paroxysmal Noc. Dyspnea, Edema, Light Headedness, Other Gastrointestinal: negative: Nausea, Vomiting, Abdominal Pain, Diarrhea, Constipation, Melena, Hematochezia, Other Genitourinary: negative: Dysuria, Frequency, Incontinence, Hematuria, Retention , Other Musculoskeletal: negative: Neck Pain, Shoulder Pain, Arm Pain, Back Pain, Hand Pain, Leg Pain, Foot Pain, Other Neurological: negative: Weakness, Numbness, Incoordination, Change in Speech, Confusion, Seizures, Other - Medications/Allergies Allergies/Adverse Reactions: Allergies Allergy/AdvReac Type Severity Reaction Status Date / Time No Known Allergies Allergy Verified 07/21/17 21:18 Medications: Current Medications Acetaminophen (Tylenol) 650 mg PO Q4H PRN PRN Reason: Headache/Fever or Pain Last Admin: 07/23/17 14:10 Dose: 650 mg Acetaminophen/Codeine Phosphate (Tylenol #3) 1 tab PO Q6HR PRN PRN Reason: Pain Last Admin: 07/27/17 09:48 Dose: 1 tab Albuterol/Ipratropium (Duoneb) 3 ml NEB [id number] [facility] Last Admin: 07/27/17 07:12 Dose: 3 ml Albuterol/Ipratropium (Duoneb) 3 ml NEB Q4H PRN PRN Reason: SOB &/or Wheezing Amlodipine Besylate (Norvasc) 10 mg PO HS [facility] Last Admin: 07/26/17 20:29 Dose: 10 mg Aspirin (Ecotrin) 325 mg PO HS [facility] Last Admin: 07/26/17 20:29 Dose: 325 mg Belladonna Alkaloids/Opium (B & O) 60 mg [place] BID PRN PRN Reason: Pain Last Admin: 07/25/17 06:27 Dose: 60 mg Docusate Sodium (Colace) 100 mg PO BID [facility] Last Admin: 07/27/17 09:48 Dose: 100 mg Enoxaparin Sodium (Lovenox) 40 mg SC 2100 [facility] Last Admin: 07/26/17 20:30 Dose: 40 mg Famotidine (Pepcid) 20 mg PO BID [facility] Last Admin: 07/27/17 09:48 Dose: 20 mg Furosemide (Lasix) 40 mg SLOW IVP NOW [facility] Stop: 07/27/17 10:30 Guaifenesin/Codeine Phosphate (Robitussin Ac) 10 ml PO Q6H PRN PRN Reason: cough Guaifenesin/Dextromethorphan (Robitussin Dm) 15 ml PO Q4H PRN PRN Reason: Cough Last Admin: 07/26/17 09:53 Dose: 15 ml Hydralazine HCl (Apresoline) 20 mg SLOW IVP Q4H PRN PRN Reason: Systolic BP > 180 Last Admin: 07/24/17 14:09 Dose: 20 mg Levofloxacin 750 mg/ Device 150 mls @ 100 mls/hr IVPB Q24HR [facility] Last Admin: 07/27/17 09:47 Dose: 150 mls Labetalol HCl (Normodyne) 20 mg SLOW IVP Q4H PRN PRN Reason: Systolic BP > 180 Last Admin: 07/26/17 03:55 Dose: 20 mg Losartan Potassium (Cozaar) 25 mg PO DAILY [facility] Last Admin: 07/27/17 09:48 Dose: 25 mg Metoprolol Tartrate (Lopressor) 50 mg PO BID [facility] Last Admin: 07/27/17 09:48 Dose: 50 mg Polyethylene Glycol (Miralax) 17 gm PO DAILY [facility] Last Admin: 07/27/17 09:49 Dose: 17 gm Potassium Chloride (K-Dur) 40 meq PO NOW [facility] Stop: 07/27/17 10:45 Simvastatin (Zocor) 80 mg PO HS [facility] Last Admin: 07/26/17 20:30 Dose: 80 mg Sodium Chloride (Flush - Normal Saline) 10 ml IVF Q12HR [facility] Last Admin: 07/27/17 09:50 Dose: 10 ml Sodium Chloride (Flush - Normal Saline) 10 ml IVF PRN PRN PRN Reason: Saline Flush Tamsulosin HCl (Flomax) 0.4 mg PO DAILY [facility] Last Admin: 07/27/17 09:48 Dose: 0.4 mg Zolpidem Tartrate (Ambien) 5 mg PO HSPRN PRN PRN Reason: Insomnia Last Admin: 07/26/17 20:33 Dose: 5 mg
--- NOTE | 2017-07-27 11:45 | EKG ---
Test Reason : Blood Pressure : / mmHG Vent. Rate : 090 BPM Atrial Rate : 090 BPM P-R Int : 000 ms QRS Dur : 108 ms QT Int : 352 ms P-R-T Axes : 000 -31 124 degrees QTc Int : 430 ms Sinus rhythm with 1st degree A-V block Left axis deviation Possible Inferior infarct , age undetermined T wave abnormality, consider lateral ischemia Abnormal ECG Confirmed by NICOLE OLIVAREZ, CALRITOS ([id number]), sports editor KARLIE MENSAH ([id number]) on 07/27/2017 11:44:59 AM Referred By: Confirmed By:CARLITOS RIVERA MD
[2017-07-27] MEDS: Enoxaparin Sodium 40 MG/0.4 ML SYRINGE SC SCH (21:35)
[2017-07-27] MEDS: Simvastatin 40 MG TAB PO SCH (21:35)
[2017-07-27] MEDS: Aspirin 325 mg Enteric Coated Tablet PO SCH (21:35)
[2017-07-27] MEDS: Zolpidem Tartrate 5 MG TAB PO PRN (21:40)
[2017-07-28 06:03] LABS: Anion Gap 11 mmol/L (10-20); BUN (Urea Nitrogen) 11 mg/dL (8.4-25.7); Calc. Creatinine Clearance 85 mL/min (70-130); Calcium 8.6 mg/dL (7.8-10.44); Carbon Dioxide 28 mmol/L (23-31); Chloride 104 mmol/L (98-107); Estimated GFR-MDRD 78
[2017-07-28] MEDS ORDERED: Losartan Potassium 25 MG TAB PO SCH (09:00)
[2017-07-28] MEDS: Docusate 100 MG CAP PO SCH (09:04)
[2017-07-28] MEDS: Polyethylene Glycol 3350 17 GM Packet PO SCH (09:04)
[2017-07-28] MEDS: Tamsulosin HCl 0.4 MG CAP PO SCH (09:04)
[2017-07-28] MEDS: Metoprolol Tartrate 50 MG TAB PO SCH (09:04)
[2017-07-28] MEDS: Famotidine 20 MG TAB PO SCH (09:04)
--- NOTE | 2017-07-28 10:25 | PDOC.PN ---
- Subjective Encounter Start Date: 07/28/17 Encounter Start Time: 10:24 Subjective: feels better. eager to go home -: no SOB/Chest pain - Objective Resuscitation Status: Resuscitation Status FULL:Full Resuscitation MAR Reviewed: Yes Vital Signs & Weight: Vital Signs (12 hours) Temp Pulse Resp BP Pulse Ox 07/28/17 07:58 98.8 F 97 20 165/73 H 94 L 07/28/17 07:43 94 L 07/28/17 07:41 92 16 94 L 07/28/17 03:58 99.2 F 89 20 178/76 H 94 L 07/28/17 02:40 86 18 94 L 07/28/17 00:20 91 L 07/27/17 23:04 90 18 96 Weight Admit Weight 199 lb 11.2 oz Weight 192 lb 1.6 oz I&O: 07/27/17 07/28/17 07/29/17 06:59 06:59 06:59 Intake Total 2210 2340 Output Total 1925 4680 Balance 285 -2340 Result Diagrams: 07/27/17 04:23 07/28/17 05:04 Additional Labs: Microbiology 07/21/17 18:16 Venous blood - Left Hand Blood Culture - Final NO GROWTH IN 5 DAYS 07/21/17 18:16 Venous blood - Left Arm Blood Culture - Final NO GROWTH IN 5 DAYS 07/21/17 17:25 Urine gautam catheter Urine Culture - Final Pseudomonas aeruginosa Phys Exam - Physical Examination Constitutional: NAD HEENT: PERRLA, moist MMs, sclera anicteric, oral pharynx no lesions Neck: no nodes, no JVD, supple, full ROM Respiratory: no wheezing, no rales, no rhonchi, clear to auscultation bilateral Cardiovascular: RRR, no significant murmur Gastrointestinal: soft, non-tender, no distention, positive bowel sounds Musculoskeletal: no edema, pulses present Neurological: non-focal, normal sensation, moves all 4 limbs Psychiatric: normal affect, A&O x 3 Skin: no rash Dx/Plan (1) Sepsis Code(s): A41.9 - SEPSIS, UNSPECIFIED ORGANISM Status: Resolved Qualifiers: Sepsis type: Pseudomonas Qualified Code(s): A41.52 - Sepsis due to Pseudomonas Comment: pansensitive.antibiotic changed per sensitivity (2) UTI (urinary tract infection) Status: Acute Qualifiers: Urinary tract infection type: site unspecified (3) Troponin level elevated Code(s): R74.8 - ABNORMAL LEVELS OF OTHER SERUM ENZYMES Status: Acute Comment: [place] demand ischemia.cardiology recs in chart (4) Bladder spasms Status: Acute (5) CAD (coronary artery disease) Code(s): I25.10 - ATHSCL HEART DISEASE OF [place] CORONARY ARTERY W/O ANG PCTRS Status: Acute Qualifiers: Coronary Disease-Associated Artery/Lesion type: [place] artery [place] vs. transplanted heart: [place] heart Associated angina: without angina Qualified Code(s): I25.10 - Atherosclerotic heart disease of [place] coronary artery without angina pectoris Comment: CABG X4 in 2010 (6) HTN (hypertension) Code(s): I10 - ESSENTIAL (PRIMARY) HYPERTENSION Status: Acute Qualifiers: Hypertension type: essential hypertension Qualified Code(s): I10 - Essential (primary) hypertension (7) Dyslipidemia Code(s): E78.5 - HYPERLIPIDEMIA, UNSPECIFIED Status: Chronic (8) H/O splenectomy Code(s): Z90.81 - ACQUIRED ABSENCE OF SPLEEN Status: Acute (9) Urinary retention Code(s): R33.9 - RETENTION OF URINE, UNSPECIFIED Status: Chronic Comment: Indwelling Gautam. urology seen the patient. will follow up in outpatient setting - Plan Pt was diuresed yesterday due to pulm vasc congestion & dyspnea -: good urine output.lost 5 lbs of water weight.asymptomatic today.Cr stable. -: plans for OP urology f/u.Will go home w Gautam. -: cont levoflox as an Op for urine pseudomonas. -: increase losartan to 50 mg/d as Bp running high * .will DC home today. * pt declines need for Review of Systems - Review of Systems Constitutional: Malaise. negative: Fever, Chills, Sweats, Weakness, Other ENT: negative: Ear Pain, Ear Discharge, Nose Pain, Nose Discharge, Nose Congestion, Mouth Pain, Mouth Swelling, Throat Pain, Throat Swelling, Other Respiratory: negative: Cough, Dry, Shortness of Breath, Hemoptysis, SOB with Excertion, Pleuritic Pain, Sputum, Wheezing Cardiovascular: negative: Chest Pain, Palpitations, Orthopnea, Paroxysmal Noc. Dyspnea, Edema, Light Headedness, Other Gastrointestinal: negative: Nausea, Vomiting, Abdominal Pain, Diarrhea, Constipation, Melena, Hematochezia, Other Genitourinary: negative: Dysuria, Frequency, Incontinence, Hematuria, Retention , Other Musculoskeletal: negative: Neck Pain, Shoulder Pain, Arm Pain, Back Pain, Hand Pain, Leg Pain, Foot Pain, Other Neurological: negative: Weakness, Numbness, Incoordination, Change in Speech, Confusion, Seizures, Other - Medications/Allergies Allergies/Adverse Reactions: Allergies Allergy/AdvReac Type Severity Reaction Status Date / Time No Known Allergies Allergy Verified 07/21/17 21:18 Medications: Current Medications Acetaminophen (Tylenol) 650 mg PO Q4H PRN PRN Reason: Headache/Fever or Pain Last Admin: 07/23/17 14:10 Dose: 650 mg Acetaminophen/Codeine Phosphate (Tylenol #3) 1 tab PO Q6HR PRN PRN Reason: Pain Last Admin: 07/27/17 21:35 Dose: 1 tab Albuterol/Ipratropium (Duoneb) 3 ml NEB [id number] [facility] Last Admin: 07/28/17 07:41 Dose: 3 ml Albuterol/Ipratropium (Duoneb) 3 ml NEB Q4H PRN PRN Reason: SOB &/or Wheezing Amlodipine Besylate (Norvasc) 10 mg PO HS [facility] Last Admin: 07/27/17 21:34 Dose: 10 mg Aspirin (Ecotrin) 325 mg PO HS [facility] Last Admin: 07/27/17 21:35 Dose: 325 mg Belladonna Alkaloids/Opium (B & O) 60 mg OK BID PRN PRN Reason: Pain Last Admin: 07/25/17 06:27 Dose: 60 mg Docusate Sodium (Colace) 100 mg PO BID [facility] Last Admin: 07/28/17 09:04 Dose: 100 mg Enoxaparin Sodium (Lovenox) 40 mg SC 2100 [facility] Last Admin: 07/27/17 21:35 Dose: 40 mg Famotidine (Pepcid) 20 mg PO BID [facility] Last Admin: 07/28/17 09:04 Dose: 20 mg Guaifenesin/Codeine Phosphate (Robitussin Ac) 10 ml PO Q6H PRN PRN Reason: cough Last Admin: 07/28/17 03:54 Dose: 10 ml Guaifenesin/Dextromethorphan (Robitussin Dm) 15 ml PO Q4H PRN PRN Reason: Cough Last Admin: 07/26/17 09:53 Dose: 15 ml Hydralazine HCl (Apresoline) 20 mg SLOW IVP Q4H PRN PRN Reason: Systolic BP > 180 Last Admin: 07/24/17 14:09 Dose: 20 mg Levofloxacin 750 mg/ Device 150 mls @ 100 mls/hr IVPB Q24HR [facility] Last Admin: 07/28/17 09:02 Dose: 150 mls Labetalol HCl (Normodyne) 20 mg SLOW IVP Q4H PRN PRN Reason: Systolic BP > 180 Last Admin: 07/26/17 03:55 Dose: 20 mg Losartan Potassium (Cozaar) 50 mg PO DAILY [facility] Last Admin: 07/28/17 09:04 Dose: 50 mg Metoprolol Tartrate (Lopressor) 50 mg PO BID [facility] Last Admin: 07/28/17 09:04 Dose: 50 mg Polyethylene Glycol (Miralax) 17 gm PO DAILY [facility] Last Admin: 07/28/17 09:04 Dose: Not Given Simvastatin (Zocor) 80 mg PO HS [facility] Last Admin: 07/27/17 21:35 Dose: 80 mg Sodium Chloride (Flush - Normal Saline) 10 ml IVF Q12HR [facility] Last Admin: 07/28/17 09:05 Dose: 10 ml Sodium Chloride (Flush - Normal Saline) 10 ml IVF PRN PRN PRN Reason: Saline Flush Tamsulosin HCl (Flomax) 0.4 mg PO DAILY [facility] Last Admin: 07/28/17 09:04 Dose: 0.4 mg Zolpidem Tartrate (Ambien) 5 mg PO HSPRN PRN PRN Reason: Insomnia Last Admin: 07/27/17 21:40 Dose: 5 mg
[2017-07-28] MEDS: Acetaminophen/Codeine 30-300mg Tablet PO PRN (11:03)
--- NOTE | 2017-07-28 15:30 | DIS ---
DATE OF ADMISSION: 07/21/2017 DATE OF DISCHARGE: 07/28/2017 PRIMARY CARE PHYSICIAN: Dr. Burk at [facility] in [place]. DISCHARGE DIAGNOSES: 1. Urinary tract infection. 2. Urinary retention status post placement of indwelling Estrada catheter. 3. Sepsis secondary to urinary tract infection. 4. Hypertension. 5. History of coronary artery disease, status post coronary artery bypass graft. 6. Recent abdominal aortic aneurysm repair 06/2017. 7. Dyslipidemia. 8. History of splenectomy. DISCHARGE MEDICATIONS: New medications, levofloxacin 500 mg p.o. daily for 7 more days and losartan dose was increased to 50 mg p.o. daily from 25 mg p.o. daily. Resume the following home medication s; Flomax 0.4 mg daily, amlodipine 10 mg daily, simvastatin 80 mg daily, Lopressor 50 mg p.o. b.i.d. , aspirin 325 mg daily. DISCHARGE FOLLOWUP: Urology, Dr. Walker Novak in 7 days and primary care physician as soon as pos leann. PROCEDURES DONE IN THE HOSPITAL: Include CT scan of the abdomen and pelvis which showed multiple sm all foci of air in the excluded lumen of the aneurysmal abdominal aorta likely due to recent interve ntion. No acute abnormality in the abdomen and pelvis Plus urinary bladder secondary to Estrada isabel terization. CONSULTATIONS IN THE HOSPITAL: Include Urology, Dr. Novak. ADMISSION HISTORY: Mr. Mayfield is a 72-year-old male with past medical history of hypertension, cor onary artery disease with recent AAA endovascular repair in 06/2017 who presented to the emergency r o with complaint of difficulty urinating. Upon his discharge from the hospital after his AAA repa ir on 07/19/2017, the patient was discharged with indwelling Estrada catheter as at that time, he was not able to void completely. He presented to the emergency room with complaints of abdominal pain in the suprapubic region and Fo azucena catheter malfunction. He also complained of some chills and fever up to 102 degrees at home. I n the emergency room, he was found to have leukocytosis with left shift in the emergency room with 1 2% bands and UA strongly positive for UTI. He was given empiric IV antibiotics and was admitted for sepsis related urinary tract infection. Urology was consulted for complaints of urinary retention and possible Estrada malfunction. The CT scan of the abdomen and pelvis was done, which showed withou t any gross leakage around the recent abdominal aortic aneurysmal graft. Please see admission histo ry and physical for further details. The patient also was found to have elevated troponin at 0.732 upon presentation and Cardiology was also consulted. He was started on therapeutic doses of Lovenox b.i.d. HOSPITAL COURSE: The patient was seen by Cardiology, Dr. Restrepo. He recommended that his troponin elevation is likely demand ischemia from sepsis. He recommended continuation of Lovenox for 2 more days and then stopping it. His cardiac enzymes were trended and they eventually trended down. He w as taken off of Lovenox after discussion with his grant manager, Dr. Hall. He was continued on his home medication of aspirin, ARB, and beta sanford as well as statin. He was seen by Dr. Novak from Urology for his complaints of urinary retention. He recommended con tinuation of the antibiotics and his Estrada catheter was replaced. The plan for him is to continue h is Flomax and follow up with Urology as an outpatient for a voiding trial. His urine culture grew Pseudomonas, which was pansensitive. It was treated with IV levofloxacin, wh ich was eventually changed to oral levofloxacin. The patient also had to be diuresed with one dose of Lasix after he received IV fluids and had some flash pulmonary edema. He tolerated the diuresis very well and was asymptomatic very soon. On the day of discharge, he was back to his baseline and was eager to go home. Discharge plan was d iscussed with the patient and all questions were answered. Medication prescriptions were provided b oth in paper and through e-prescriptions. He will follow up with his primary care physician and Uro logy as stated above. He was seen and examined prior to discharge. Please see hospitalist progress note from today's date for further detail and [id number] interaction. Total time spent in the discharge of this patient 32 minutes.
[2017-07-28 16:55] VITALS: BP 159/78; TEMP 97.8
== END 2017-07-28 13:07 | disposition home or self-care (01) | DRG 871 ==
LOC: ERS 13:16 → 2NO 18:27
PROVIDERS: ADMIT Internal Medicine; ATTEND Internal Medicine
DX: A41.52 Sepsis due to Pseudomonas (principal); I21.4 Non-ST elevation (NSTEMI) myocardial infarction; N39.0 Urinary tract infection, site not specified; I24.8 Other forms of acute ischemic heart disease; B96.5 Pseudomonas (aeruginosa) (mallei) (pseudomallei) as the cause of diseases classified elsewhere; I10 Essential (primary) hypertension; I25.10 Atherosclerotic heart disease of native coronary artery without angina pectoris; Z95.1 Presence of aortocoronary bypass graft; E78.5 Hyperlipidemia, unspecified; Z96.0 Presence of urogenital implants; R33.9 Retention of urine, unspecified; K59.00 Constipation, unspecified
CPT/HCPCS: 36415; 36416; 51702; 71010; 74177; 80048; 80053; 81003; 81015; 82550; 82553; 82565; 83605; 83690; 84484; 85014; 85018; 85025; 85049; 87040; 87077; 87086; 87186; 93005; 93010; 94640; 96361; 96365; 96368; A4216; G8978-GP-CK; G8979-GP-CJ; J0360; J0696; J0744; J1650; J1940; J1956; J3370; J7050; J7620

== ENCOUNTER 2017-12-25 07:31 | Outpatient (CLI) | payer MEDICARE, BC | END 2017-12-25 07:32 | disposition home or self-care (01) | LOC: BICCT 07:31 | PROVIDERS: ATTEND Thoracic Surgery (Cardiothoracic Vascular Surgery) | DX: I71.4 Abdominal aortic aneurysm, without rupture (principal); K55.1 Chronic vascular disorders of intestine; N28.89 Other specified disorders of kidney and ureter | CPT/HCPCS: 74176 ==

== ENCOUNTER 2018-06-02 10:33 | Emergency (ER) | payer MEDICARE, BC ==
[2018-06-02] MEDS ORDERED: HYDROcodone/Acetaminophen 5/325 mg Tablet ONE (12:53)
[2018-06-02 13:25] LABS: #Basophils 0.1 thou/uL (0.0-0.2); #Eosinphils 0.4 thou/uL (0.0-0.7); #Lymphocytes 2.8 thou/uL (1.20-3.40); #Monocytes 0.7 thou/uL (0.11-0.59); #Neutrophils 4.1 thou/uL (1.40-6.50); %Basophils 1.1 % (0.0-1.0); %Eosinophils 4.8 % (0.0-10.0); %Lymphocytes 34.4 % (21.0-51.0); %Monocytes 8.1 % (0.0-10.0); %Neutrophils 51.7 % (42.0-75.0); Hemoglobin 14.8 g/dL (14.0-18.0); Mean Corpuscular HGB CONC 34.1 g/dL (32.0-36.0); Mean Corpuscular Volume 99.8 fL (78.0-98.0); Mean Platelet Volume 7.5 fL (7.4-10.4); Platelet Count 223 thou/uL (130-400); RBC Distribution Width 13.6 % (11.5-14.5); Red Blood Cell (RBC) Count 4.37 mill/uL (4.70-6.10)
[2018-06-02 13:29] LABS: ALT (SGPT) 13 U/L (8-55); AST (SGOT) 14 U/L (5-34); Alkaline Phosphatase 23 U/L (40-150); Anion Gap 11 mmol/L (10-20); BUN (Urea Nitrogen) 24 mg/dL (8.4-25.7); Bilirubin, Total 0.6 mg/dL (0.2-1.2); Calc. Creatinine Clearance 0 mL/min (70-130); Calcium 9.2 mg/dL (7.8-10.44); Carbon Dioxide 24 mmol/L (23-31); Chloride 109 mmol/L (98-107); Estimated GFR-MDRD 42; Globulin 2.6 g/dL (2.4-3.5); Glucose 90 mg/dL (83-110); Potassium 4.6 mmol/L (3.5-5.1); Protein, Total 6.6 g/dL (5.8-8.1); Sodium 139 mmol/L (136-145)
--- NOTE | 2018-06-02 15:01 | RAD ---
FOUR VIEWS OF THE LEFT KNEE: DATE: 06/02/18. COMPARISON: 05/04/12. HISTORY: Pain. FINDINGS: Atherosclerotic calcifications are seen posteriorly. There is stable mild medial compartment narrowi ng. There is no knee joint effusion. There is patellofemoral joint space narrowing with posterior p atellar osteophyte formation and enthesophyte formation at the insertion of the quadriceps tendon, st able. No displaced fracture or dislocation. IMPRESSION: Multicompartment degenerative joint disease, not significantly changed. No acute osseous abnormality is seen. POS: KYM
--- NOTE | 2018-06-02 15:04 | RAD ---
TWO VIEWS OF THE LUMBAR SPINE: DATE: 06/02/18. COMPARISON: None. HISTORY: Pain. FINDINGS: There is extensive atherosclerotic calcification of a prominent abdominal aortic aneurysm, incomplete ly assessed on this examination. There is an associated aortobifemoral stent graft present. There is incompletely visualized postoperative hardware associated with the hip/acetabulum on the rig ht, including a linear metallic structure extending medial to the right acetabulum. There is multilevel lower lumbar spine facet hypertrophy. Lumbar vertebral body height and alignment appears within normal limits. No displaced fracture is noted. There is bilateral lower lumbar spine facet hypertrophy at L4-5 and L5-S1. IMPRESSION: Lower lumbar spine facet hypertrophy with no displaced fracture or dislocation seen. POS: SHILPA
== END 2018-06-02 14:40 | disposition home or self-care (01) ==
LOC: ERS 10:33
DX: M54.5 Low back pain (principal); R51 Headache; M25.562 Pain in left knee; E78.5 Hyperlipidemia, unspecified; I10 Essential (primary) hypertension; I25.10 Atherosclerotic heart disease of native coronary artery without angina pectoris; Z79.899 Other long term (current) drug therapy; Z79.82 Long term (current) use of aspirin
CPT/HCPCS: 36415; 72100; 80053; 85025; 96360

== ENCOUNTER 2020-01-21 21:50 | Emergency (ER) | payer MEDICARE, BC, OTHER ==
[2020-01-21] MEDS ORDERED: Albuterol 200 PUFF (6.7GM INHALER) ONE (22:16)
[2020-01-21 22:22] LABS: #Basophils 0.1 thou/uL (0.0-0.2); #Eosinphils 0.2 thou/uL (0.0-0.7); #Lymphocytes 3.4 thou/uL (1.20-3.40); #Monocytes 1.1 thou/uL (0.11-0.59); #Neutrophils 3.8 thou/uL (1.40-6.50); %Eosinophils 2.1 % (0.0-10.0); %Lymphocytes 39.5 % (21.0-51.0); %Monocytes 12.9 % (0.0-10.0); %Neutrophils 44.5 % (42.0-75.0); Hemoglobin 16.9 g/dL (14.0-18.0); Mean Corpuscular HGB CONC 31.4 g/dL (32.0-36.0); Mean Corpuscular Hemoglobin 31.1 pg (27.0-31.0); Mean Corpuscular Volume 99.1 fL (78.0-98.0); Mean Platelet Volume 8.3 fL (7.4-10.4); Platelet Count 215 thou/uL (130-400); RBC Distribution Width 12.8 % (11.5-14.5); Red Blood Cell (RBC) Count 5.42 mill/uL (4.70-6.10); White Blood Cell (WBC) Count 8.6 thou/uL (4.8-10.8)
--- NOTE | 2020-01-21 22:30 | RAD ---
RADIOGRAPH CHEST 1 VIEW: DATE: 01/21/2020 HISTORY: 74-year-old male with dyspnea FINDINGS: There is hyperinflation of the lungs, consistent with COPD. There is cardiomegaly. There is no eviden ce of airspace density, pulmonary edema, or pneumothorax. The lateral costophrenic angles are not effaced. Signs of previous CABG. IMPRESSION: 1) No acute pulmonary findings. 2) emphysema. 3) cardiomegaly without congestive heart failure. 4) evidence for coronary atherosclerotic disease.
[2020-01-21 22:47] LABS: ALT (SGPT) 12 U/L (8-55); AST (SGOT) 18 U/L (5-34); Albumin 4.3 g/dL (3.4-4.8); Alkaline Phosphatase 33 U/L (40-110); Anion Gap 14 mmol/L (10-20); BUN (Urea Nitrogen) 24 mg/dL (8.4-25.7); Bilirubin, Total 0.4 mg/dL (0.2-1.2); Calc. Creatinine Clearance 0 mL/min (70-130); Calcium 9.6 mg/dL (7.8-10.44); Carbon Dioxide 23 mmol/L (23-31); Chloride 105 mmol/L (98-107); Estimated GFR-MDRD 45; Globulin 3.2 g/dL (2.4-3.5); Glucose 110 mg/dL (83-110); Potassium 4.2 mmol/L (3.5-5.1); Protein, Total 7.5 g/dL (5.8-8.1); Sodium 138 mmol/L (136-145)
[2020-01-22 01:11] LABS: Actual Bicarbonate (HCO3a) 23.3 mEq/L (22-28); Analyzer IN Cardio ER; Base Excess (BEa) -1.4 mEq/L (-2.0 to +3.0); CO2 Tension 39.3 mmHg (35.0-45.0); Calcium, Ionized 1.17 mmol/L (1.12-1.30); Carboxyhemoglobin (COHb) 0.8 gm% (0.0-3.0); Hemoglobin (Hb) 16.4 g/dL (14.0-18.0); O2 Tension (PaO2) 68.5 mmHg (> 70.0); Potassium - ABG Lab 4.23 mmol/L (3.70-5.30); pH, Arterial 7.39 (7.35-7.45)
[2020-01-22 01:13] LABS: ALV-art Gradient 32.105 (0-20); Puncture Site LBA
== END 2020-01-22 04:24 | disposition short-term general hospital (02) ==
LOC: ERS 21:50
DX: J20.9 Acute bronchitis, unspecified (principal); I25.10 Atherosclerotic heart disease of native coronary artery without angina pectoris; I10 Essential (primary) hypertension; E78.5 Hyperlipidemia, unspecified; E78.00 Pure hypercholesterolemia, unspecified; Z87.891 Personal history of nicotine dependence; Z79.82 Long term (current) use of aspirin; Z79.899 Other long term (current) drug therapy
CPT/HCPCS: 71045; 80053; 82805; 83880; 84145; 84484; 85025; 87804 ×2; 93005; 99285; U0001

== ENCOUNTER 2020-11-07 15:46 | Emergency (ER) | payer MEDICARE, BC, OTHER ==
--- NOTE | 2020-11-07 16:41 | RAD ---
Chest one view HISTORY: Dyspnea. COVID positive. COMPARISON: 01/21/2020. FINDINGS: Cardiac silhouette is magnified by projection and partially obscured by infiltrate at the l eft base and lingula of the left upper lobe. Patchy infiltrate also present at the right lung base. Mediastinum is midline with postoperative changes and aortic calcification. No evidence of pneumothorax. Postoperative changes of the shoulders. Old right rib fractures. IMPRESSION : Bilateral infiltrates at the lung bases. Correlate for COVID pneumonitis. Probable superimposed small left pleural effusion.
[2020-11-07 17:12] LABS: #Basophils 0.1 thou/uL (0.0-0.2); #Eosinphils 0.2 thou/uL (0.0-0.7); #Lymphocytes 3.2 thou/uL (1.20-3.40); #Monocytes 1.2 thou/uL (0.11-0.59); #Neutrophils 7.3 thou/uL (1.40-6.50); %Basophils 0.8 % (0.0-1.0); %Eosinophils 1.3 % (0.0-10.0); %Lymphocytes 26.9 % (21.0-51.0); %Monocytes 9.9 % (0.0-10.0); %Neutrophils 61.1 % (42.0-75.0); Hemoglobin 15.6 g/dL (14.0-18.0); Mean Corpuscular HGB CONC 32.8 g/dL (32.0-36.0); Mean Corpuscular Hemoglobin 32.9 pg (27.0-31.0); Mean Platelet Volume 8.2 fL (7.4-10.4); Platelet Count 219 thou/uL (130-400); RBC Distribution Width 13.1 % (11.5-14.5); Red Blood Cell (RBC) Count 4.75 mill/uL (4.70-6.10)
[2020-11-07] MEDS ORDERED: Aspirin 81 mg Enteric Coated Tablet ONE (17:44)
[2020-11-07 17:45] LABS: ALT (SGPT) 13 U/L (8-55); AST (SGOT) 14 U/L (5-34); Alkaline Phosphatase 30 U/L (40-110); Anion Gap 18 mmol/L (10-20); BUN (Urea Nitrogen) 26 mg/dL (8.4-25.7); Bilirubin, Total 0.7 mg/dL (0.2-1.2); CK (CPK) 39 U/L (30-200); Calc. Creatinine Clearance 0 mL/min (70-130); Calcium 8.8 mg/dL (7.8-10.44); Carbon Dioxide 20 mmol/L (23-31); Chloride 109 mmol/L (98-107); Globulin 2.6 g/dL (2.4-3.5); Glucose 110 mg/dL (83-110); Lipase 40 U/L (8-78); Potassium 4.5 mmol/L (3.5-5.1); Protein, Total 6.6 g/dL (5.8-8.1); Sodium 142 mmol/L (136-145)
[2020-11-07 17:56] LABS: CKMB 1.2 ng/mL (0-6.6)
[2020-11-07 19:11] LABS: SARS-CoV-2 NAA Rapid Test Not Detected (NotDetected)
[2020-11-07] MEDS ORDERED: Acetaminophen 500 MG TAB ONE (21:00)
--- NOTE | 2020-11-30 13:12 | EKG ---
Test Reason : Blood Pressure : / mmHG Vent. Rate : 075 BPM Atrial Rate : 075 BPM P-R Int : 246 ms QRS Dur : 112 ms QT Int : 418 ms P-R-T Axes : 029 -31 086 degrees QTc Int : 466 ms Sinus rhythm with 1st degree A-V block Left axis deviation Nonspecific T wave abnormality Prolonged QT Abnormal ECG Confirmed by MILADYS BLEVINS ([id number]), clinical editor KARLIE MENSAH ([id number]) on 11/30/2020 1:11:49 PM Referred By: Confirmed By:MILADYS Mendes
== END 2020-11-07 22:06 ==
LOC: ERS 15:46
DX: R07.9 Chest pain, unspecified (principal); R77.8 Other specified abnormalities of plasma proteins; J44.9 Chronic obstructive pulmonary disease, unspecified; I10 Essential (primary) hypertension; I25.10 Atherosclerotic heart disease of native coronary artery without angina pectoris; E78.00 Pure hypercholesterolemia, unspecified; E78.5 Hyperlipidemia, unspecified; Z79.82 Long term (current) use of aspirin; Z79.84 Long term (current) use of oral hypoglycemic drugs; Z20.822 Contact with and (suspected) exposure to COVID-19; Z87.891 Personal history of nicotine dependence
CPT/HCPCS: 0240U; 71045; 80053; 82550; 82553; 83690; 83880; 84484; 85025; 93005; 94760; 99285; 36415